=== PATIENT | male | born 1980 | race Caucasian/White ===

== ENCOUNTER → 2018-10-05 | Outpatient (CLI) | payer BC ==
[~2018-10-05] MED LIST: ALEVE SINUS & H1 TER PO; MOTRIN 200200 MG/TAB PO; NEXIUM 20MG20 MG PO; PERCOCET 325 MG1 TA2 PO; PREDNISONE; PRINZIDE 12.5 M1 TA1 PO; VALIUM 5MG T5 MG/TAB PO
== END ==
LOC: COL.RAD 15:07
DX: R10.31 Right lower quadrant pain (principal); R14.0 Abdominal distension (gaseous)
CPT/HCPCS: Q9967

== ENCOUNTER 2021-11-25 15:05 | Emergency (ER) | payer OTHER, BC ==
[~2021-11-25] VITALS: Ht 180.3 cm; Wt 136.4 kg
[2021-11-25 15:48] VITALS: TEMP 98.3
[2021-11-25] MEDS ORDERED: PAXIL 20MG20 MG PO (15:53)
[2021-11-25 16:56] VITALS: BP 144/92; PULSE 85
== END 2021-11-25 16:56 | disposition home or self-care (01) ==
LOC: COL.ER 15:05
DX: Z04.1 Encounter for examination and observation following transport accident (principal); V89.2XXA Person injured in unspecified motor-vehicle accident, traffic, initial encounter